=== PATIENT | female | born 1970 | race African-American/Black ===

== ENCOUNTER 2017-05-25 16:45 | Inpatient (IN) | payer BC, OTHER ==
[~2017-05-25] VITALS: Ht 172.7 cm; Wt 103.1 kg
[~2017-05-25 16:45] MED LIST: GUAI100S6 PO; PRED10 PO; Z.0.NO CURRENT MEDS; ZITH250T PO
[2017-05-25 16:47] VITALS: BP 139/79; PULSE 92; RESP 16; TEMP 98.3; O2SAT 99
[2017-05-25] MEDS ORDERED: SODIUM CHLOR 0.9% 1000 ML INJ 1,000 ML IV SCH (17:26)
[2017-05-25] MEDS ORDERED: IBUP200C PO (17:27)
[2017-05-25] MEDS ORDERED: MORPHINE SULFATE 4 MG/ML INJ IV PUSH ONE (17:30)
[2017-05-25] MEDS ORDERED: SODIUM CHLORIDE 0.9% FLUSH 10 ML FLUSH IV FLUSH PRN (17:30)
[2017-05-25] MEDS ORDERED: ONDANSETRON HCL 4 MG/2 ML VIAL IVP ONE (17:30)
--- NOTE | 2017-05-25 17:42 | PD ---
HPI . Abdominal pain Chief Complaint: Abdominal Pain Time Seen by Provider: 17:18 Travel History International Travel<30 days: No Contact w/Intl Traveler<30days: No Traveled to known affect area: No History of Present Illness HPI This patient presents with the chief complaint of right-sided abdominal pain for the last week. She reports poor appetite. She denies nausea, vomiting or diarrhea. She does admit to some dysuria. Her pain is exacerbated by movement. Pain has been unrelieved by Gas-X and Pepto-Bismol. Pain is rated 7- 8/10. PFSH Past Medical History Medical History: Denies Significant Hx ?: Not LMP: 05/25/17 : 2 Para: 2 Past Surgical History Section: Yes (x1) Social History Alcohol Use: Yes (occasional) Tobacco Use: No Substance Use: No Allergies-Medications (Allergen,Severity, Reaction): Coded Allergies: No Known Allergies (Verified , 11/26/11) Reported Meds & Prescriptions Reported Meds & Active Scripts Active Reported Ibuprofen 200 Mg Cap 200 Mg PO Q4H PRN Review of Systems Except as stated in HPI: all other systems reviewed are Neg General / Constitutional: No: Fever, Chills Cardiovascular: No: Chest Pain or Discomfort Respiratory: No: Shortness of Breath Gastrointestinal: Positive: Abdominal Pain, No: Nausea, Vomiting, Diarrhea Genitourinary: Positive: Dysuria, No: Urgency, Frequency, Discharge, Vaginal Bleeding Physical Exam Narrative GENERAL: Patient is awake and alert and does not appear to be in any acute distress. SKIN: Warm and dry. HEAD: Atraumatic. Normocephalic. EYES: Pupils equal and round. ENT: No nasal bleeding or discharge. Mucous membranes pink and moist. NECK: Trachea midline. Neck supple. CARDIOVASCULAR: Regular rate and rhythm. Heart sounds are normal. RESPIRATORY: No accessory muscle use. Lungs are clear with good air movement throughout. GASTROINTESTINAL: Abdomen soft. She is tender on the right side more right lower than right upper quadrant. Negative Hall sign. Nondistended. MUSCULOSKELETAL: No obvious deformities. No edema. NEUROLOGICAL: Awake and alert. No obvious cranial nerve deficits. Motor grossly within normal limits. Normal speech. PSYCHIATRIC: Appropriate mood and affect; insight and judgment normal. Data Data Last Documented VS Vital Signs Date Time Temp Pulse Resp B/P Pulse Ox O2 Delivery O2 Flow Rate FiO2 05/25/17 18:41 16 05/25/17 16:47 98.3 92 139/79 99 Orders Complete Blood Count With Diff (05/25/17 17:26) Comprehensive Metabolic Panel (05/25/17:) Lipase (05/25/17 17:26) Urinalysis - C+S If Indicated (05/25/17 17:26) Ct Abd/Pel W Iv Contrast(Rout) (05/25/17:26) Iv Access Insert/Monitor (05/25/17:26) Morphine Inj (Morphine Inj) (05/25/17 17:30) Ondansetron Inj (Zofran Inj) (05/25/17 17:30) Sodium Chlor 0.9% 1000 Ml Inj (Ns 1000 M (05/25/17 17:26) Sodium Chloride 0.9% Flush (Ns Flush) (05/25/17 17:30) Ed Urine Pregnancytest Poc (05/25/17 17:26) Red Blood Cells (Rbc) (05/25/17 18:42) Blood Product Administration .UPON TRANSFUSION (05/25/17 18:42) Sodium Chlor 0.9% 250 Ml Inj (Ns 250 Ml (05/25/17 18:45) Type And Screen (05/25/17 18:42) Labs Laboratory Tests Test 05/25/17 05/25/17 18:00 18:05 Urine Color YELLOW Urine Turbidity CLEAR Urine pH 5.0 Urine Specific [place] 1.018 Urine Protein NEG mg/dL Urine Glucose (UA) NEG mg/dL Urine Ketones NEG mg/dL Urine Occult Blood NEG Urine Nitrite NEG Urine Bilirubin NEG Urine Urobilinogen LESS THAN 2.0 MG/DL Urine Leukocyte Esterase SMALL Urine WBC 5 /hpf Urine Squamous Epithelial 1 /hpf Cells Urine Mucus FEW /lpf Microscopic Urinalysis Comment CULT NOT INDICATED White Blood Count 11.8 TH/MM3 Red Blood Count 4.30 MIL/MM3 Hemoglobin 6.9 GM/DL Hematocrit 22.4 % Mean Corpuscular Volume 52.1 FL Mean Corpuscular Hemoglobin 16.1 PG Mean Corpuscular Hemoglobin 30.9 % Concent Red Cell Distribution Width 20.4 % Platelet Count 289 TH/MM3 Mean Platelet Volume 9.1 FL Neutrophils (%) (Auto) 77.4 % Lymphocytes (%) (Auto) 9.9 % Monocytes (%) (Auto) 11.6 % Eosinophils (%) (Auto) 0.6 % Basophils (%) (Auto) 0.5 % Neutrophils # (Auto) 9.1 TH/MM3 Lymphocytes # (Auto) 1.2 TH/MM3 Monocytes # (Auto) 1.4 TH/MM3 Eosinophils # (Auto) 0.1 TH/MM3 Basophils # (Auto) 0.1 TH/MM3 CBC Comment DIFF FINAL Differential Comment MDM Medical Decision Making Medical Screen Exam Complete: Yes Emergency Medical Condition: Yes Differential Diagnosis Differential diagnosis of abdominal pain includes but is not limited to gastritis, pancreatitis, hepatitis, gastroenteritis, gallbladder disease, constipation, urinary retention, UTI, peptic ulcer disease, diverticulitis or appendicitis Narrative Course This patient presents complaining with right-sided abdominal pain for a week. She is tender on the right side. She has had pain for weeks would be very unusual to have appendicitis. But, she is tender in the right mid lower abdomen. CT is pending. This patient's workup is still pending. Her care is being signed out to Dr. Edmonds at 7 p.m. The lab is called report that her hemoglobin is about 6. She has been typed and crossed for 2 units. I have subsequently done a rectal exam which is Hemoccult negative. The patient reports no obvious blood loss. HemaPrompt Point of Care Internal Pos. & Neg. Controls: Passed Fecal Specimen Occult Blood: Negative Diagnosis Primary Impression: Abdominal pain Qualified Code: R10.31 - Right lower quadrant abdominal pain Additional Impression: Anemia Qualified Code: D64.9 - Anemia, unspecified type Condition: Stable Grisel Beck MD May 25, 2017 17:42
[2017-05-25 18:34] LABS: BLOOD, URINE NEG (NEG); COMMENT (UR) CULT NOT INDICATED; CULTURE IF INDICATED CULT NOT INDICATED; GLUCOSE,URINE NEG (NEG); KETONE, URINE NEG (NEG); MUCUS URINE FEW /lpf (OCC); NITRITE,URINE NEG (NEG); SQUAMOUS EPITHELIAL CELL URINE 1 /hpf (0-5); URINE COLOR YELLOW (YELLW/STRAW)
[2017-05-25 18:34] LABS: AUTOMATED NEUTROPHIL # 9.1 TH/MM3 (1.8-7.7); BASOPHIL # 0.1 TH/MM3 (0-0.2); BASOPHIL % 0.5 % (0.0-2.0); EOSINOPHIL # 0.1 TH/MM3 (0-0.4); EOSINOPHIL % 0.6 % (0.0-4.0); LYMPH % 9.9 % (9.0-44.0); LYMPHOCYTE # 1.2 TH/MM3 (1.0-4.8); MEAN CELL VOLUME 52.1 FL (80.0-100.0); MEAN CORPUSCULAR HEMOGLOBIN 16.1 PG (27.0-34.0); MEAN CORPUSCULAR HGB CONC 30.9 % (32.0-36.0); MONO % 11.6 % (0.0-8.0); NEUT % 77.4 % (16.0-70.0); PLATELET COUNT 289 TH/MM3 (150-450); RED CELL DISTRIBUTION WIDTH 20.4 % (11.6-17.2); WHITE BLOOD COUNT 11.8 TH/MM3 (4.0-11.0)
[2017-05-25 18:38] LABS: HEMO FLAGS DIFF FINAL
[2017-05-25 18:41] LABS: HEMATOCRIT 22.4 % (35.0-46.0)
[2017-05-25] MEDS ORDERED: SODIUM CHLOR 0.9% 250 ML INJ 250 ML IV ONE (18:45)
[2017-05-25 19:05] LABS: ANION GAP 8 MEQ/L (5-15); AST (GOT) 12 U/L (15-37); BICARBONATE 25.6 MEQ/L (21.0-32.0); BLOOD UREA NITROGEN 9 MG/DL (7-18); CHLORIDE 102 MEQ/L (98-107); GLOMERULAR FILTRATION RATE 94 ML/MIN (>89); POTASSIUM 3.5 MEQ/L (3.5-5.1); SODIUM (NA) 136 MEQ/L (136-145)
[2017-05-25 19:06] LABS: ALT (GPT) 14 U/L (10-53)
[2017-05-25 19:08] LABS: ALKALINE PHOSPHATASE 78 U/L (45-117); TOTAL BILIRUBIN ADULT 0.3 MG/DL (0.2-1.0)
[2017-05-25] MEDS ORDERED: IOHEXOL 350 MG/ML 10 ML VIAL (for RAD DIAG) IV ONE (19:12)
--- NOTE | 2017-05-25 19:13 | RADRPT ---
EXAM DATE/TIME: 05/25/2017 18:53 [facility] COMPARISON: No previous studies available for comparison. INDICATIONS : Right upper abdomen pain for one week. IV CONTRAST: 100 cc Omnipaque 350 (iohexol) IV ORAL CONTRAST: No oral contrast ingested. RADIATION DOSE: 14.46 CTDIvol (mGy) MEDICAL HISTORY : None SURGICAL HISTORY : section. ENCOUNTER: Initial ACUITY: 1 week PAIN SCALE: 4/10 LOCATION: Right upper quadrant TECHNIQUE: Volumetric scanning of the abdomen and pelvis was performed. Using automated exposure control and ad justment of the mA and/or kV according to patient size, radiation dose was kept as low as reasonably achievable to obtain optimal diagnostic quality images. DICOM format image data is available electro nically for review and comparison. FINDINGS: Lung bases are clear. Osseous structures are intact. No pleural or pericardial effusions are seen. Li tracy, gallbladder, spleen, pancreas, adrenal glands, kidneys unremarkable. Tiny fat-containing umbilic al hernia. Urinary bladder unremarkable. There is no evidence of bowel obstruction. The uterus is enl arged with multiple myometrial based masses identified including an inhomogeneous solid fundal mass m easuring 9.4 x 9 cm 3. This is felt to represent uterine fibroids. The left ovary is normal. In the r ight lower quadrant there are inflammatory changes identified surrounding the right ovary which is ab normal in appearance. A hypodense mass with rim enhancement is present the right ovary measuring 3.9 x 3 cm in AP and transverse dimension. There is adjacent inflammatory stranding and trace fluid. The appendix is normal. This is concerning for a tubo-ovarian abscess. A torsed ovary is also differentia l diagnostic consideration. CONCLUSION: Abnormal inflammatory changes in the right lower quadrant at the level of the right adnexa which res fluid and stranding seen. Heterogeneous appearance of the right ovary. The findings are concerning fo r tubo-ovarian abscess ovarian torsion, favor the former. Appendix is normal. Fibroid uterus is present. Virgil Horne MD on May 25, 2017 at 19:07 Board Certified Radiologist. This report was verified electronically.
[2017-05-25 19:20] VITALS: BP 125/65; PULSE 71; RESP 18; O2SAT 97
--- NOTE | 2017-05-25 19:50 | PD ---
Data Data Last Documented VS Vital Signs Date Time Temp Pulse Resp B/P Pulse Ox O2 Delivery O2 Flow Rate FiO2 05/25/17 19:20 71 18 125/65 97 05/25/17 16:47 98.3 Orders Complete Blood Count With Diff (05/25/17 17:26) Comprehensive Metabolic Panel (05/25/17 17:26) Lipase (05/25/17 17:26) Urinalysis - C+S If Indicated (05/25/17 17:26) Ct Abd/Pel W Iv Contrast(Rout) (05/25/17 17:26) Iv Access Insert/Monitor (05/25/17 17:26) Morphine Inj (Morphine Inj) (05/25/17 17:30) Ondansetron Inj (Zofran Inj) (05/25/17 17:30) Sodium Chlor 0.9% 1000 Ml Inj (Ns 1000 M (05/25/17 17:26) Sodium Chloride 0.9% Flush (Ns Flush) (05/25/17 17:30) Ed Urine Pregnancytest Poc (05/25/17 17:26) Red Blood Cells (Rbc) (05/25/17 18:42) Blood Product Administration .UPON TRANSFUSION (05/25/17 18:42) Sodium Chlor 0.9% 250 Ml Inj (Ns 250 Ml (05/25/17 18:45) Type And Screen (05/25/17 18:42) Iohexol 350 Inj (Omnipaque 350 Inj) (05/25/17 19:12) Doxycycline Inj (Vibramycin Inj) (05/25/17 20:00) Cefoxitin Inj (Mefoxin Inj) (05/25/17 20:00) Us Pelvis Comp W Dop Transvag (05/25/17 19:50) Admit To Inpatient (05/25/17 ) Vital Signs (Adult) Q4H (05/25/17 23:58) Activity Oob Ad [place] (05/25/17 ) Diet Regular Basic (05/26/17 Breakfast) Sodium Chloride 0.9% Flush (Ns Flush) (05/26/17 00:00) Sodium Chloride 0.9% Flush (Ns Flush) (05/26/17 09:00) Doxycycline (Vibramycin) (05/26/17 00:00) Cefoxitin Inj (Mefoxin Inj) (05/26/17 06:00) Ibuprofen (Motrin) (05/26/17 00:00) Ketorolac Inj (Toradol Inj) (05/26/17 00:00) Acetamin-Hydrocod 325-5 Mg ([place] 5-325 (05/26/17 00:00) Morphine Inj (Morphine Inj) (05/26/17 00:00) Ondansetron Inj (Zofran Inj) (05/26/17 00:00) Complete Blood Count With Diff (05/26/17 06:00) Blood Culture (05/25/17 23:58) Gc And Chlamydia Pcr (05/25/17 23:58) Baldomero Bilateral/Knee High KENIA.QSHIFT (05/25/17 23:58) Inpatient Certification (05/25/17 ) Blood Product Administration .UPON TRANSFUSION (05/26/17 00:02) Sodium Chlor 0.9% 250 Ml Inj (Ns 250 Ml (05/26/17 00:15) Acetaminophen (Tylenol) (05/26/17 00:15) Diphenhydramine (Benadryl) (05/26/17 00:15) Admit Order (Ed Use Only) (05/26/17 00:14) Labs Laboratory Tests Test 05/25/17 05/25/17 05/25/17 05/25/17 18:00 18:05 19:23 21:37 Urine Color YELLOW Urine Turbidity CLEAR Urine pH 5.0 Urine Specific [place] 1.018 Urine Protein NEG mg/dL Urine Glucose (UA) NEG mg/dL Urine Ketones NEG mg/dL Urine Occult Blood NEG Urine Nitrite NEG Urine Bilirubin NEG Urine Urobilinogen LESS THAN 2.0 MG/DL Urine Leukocyte Esterase SMALL Urine WBC 5 /hpf Urine Squamous Epithelial 1 /hpf Cells Urine Mucus FEW /lpf Microscopic Urinalysis Comment CULT NOT INDICATED White Blood Count 11.8 TH/MM3 Red Blood Count 4.30 MIL/MM3 Hemoglobin 6.9 GM/DL Hematocrit 22.4 % Mean Corpuscular Volume 52.1 FL Mean Corpuscular Hemoglobin 16.1 PG Mean Corpuscular Hemoglobin 30.9 % Concent Red Cell Distribution Width 20.4 % Platelet Count 289 TH/MM3 Mean Platelet Volume 9.1 FL Neutrophils (%) (Auto) 77.4 % Lymphocytes (%) (Auto) 9.9 % Monocytes (%) (Auto) 11.6 % Eosinophils (%) (Auto) 0.6 % Basophils (%) (Auto) 0.5 % Neutrophils # (Auto) 9.1 TH/MM3 Lymphocytes # (Auto) 1.2 TH/MM3 Monocytes # (Auto) 1.4 TH/MM3 Eosinophils # (Auto) 0.1 TH/MM3 Basophils # (Auto) 0.1 TH/MM3 CBC Comment DIFF FINAL Differential Comment Sodium Level 136 MEQ/L Potassium Level 3.5 MEQ/L Chloride Level 102 MEQ/L Carbon Dioxide Level 25.6 MEQ/L Anion Gap 8 MEQ/L Blood Urea Nitrogen 9 MG/DL Creatinine 0.80 MG/DL Estimat Glomerular Filtration 94 ML/MIN Rate Random Glucose 89 MG/DL Calcium Level 8.7 MG/DL Total Bilirubin 0.3 MG/DL Aspartate Amino Transf 12 U/L (AST/SGOT) Alanine Aminotransferase 14 U/L (ALT/SGPT) Alkaline Phosphatase 78 U/L Total Protein 7.4 GM/DL Albumin 3.1 GM/DL Lipase 157 U/L Blood Type B POSITIVE B POSITIVE Antibody Screen NEGATIVE Crossmatch Leukocyte-Reduced Red Blood Cells Blood Bank Comment [facility] Medical Record Reviewed: Yes Supervised Visit with SARAI: No Narrative Course CBC & BMP Diagram 05/25/17 18:05 2 units packed cells given. Doxycycline and cefoxitin ordered. Case discussed with Dr. Peter for [employer] who will evaluate at bedside. Pt to be admitted for TOA. Please refer to Dr Stanley's note for additional information. Last 24 hours Impressions Abdomen/Pelvis/Transvag US 05/25/17 1950 Signed Impressions: Service Date/Time: Thursday, May 25, 2017 21:09 - CONCLUSION: 1. There is a complex hypoechoic mass at the right adnexa with trace free fluid. Blood flow is documented. Given the findings with the CT abnormalities, a tubo-ovarian abscess should be considered. 2. Left ovary not visualized. 3. Fibroids. Virgil Horne MD Abdomen/Pelvis CT 05/25/17 1726 Signed Impressions: Service Date/Time: Thursday, May 25, 2017 18:53 - CONCLUSION: Abnormal inflammatory changes in the right lower quadrant at the level of the right adnexa which res fluid and stranding seen. Heterogeneous appearance of the right ovary. The findings are concerning for tubo-ovarian abscess ovarian torsion, favor the former. Appendix is normal. Fibroid uterus is present. Virgil Horne MD Diagnosis Primary Impression: Abdominal pain Qualified Code: R10.31 - Right lower quadrant abdominal pain Additional Impressions: Anemia Qualified Code: D64.9 - Anemia, unspecified type Tubo-ovarian abscess Admitting Information Admitting Physician Requests: Admit Condition: Stable Tal Edmonds MD May 25, 2017 19:50
[2017-05-25] MEDS ORDERED: DOXYCYCLINE INJ 100 MG in SODIUM CHLORIDE 0.9% INJ 100 ML IV ONE (20:00)
[2017-05-25] MEDS ORDERED: ceFOXitin INJ 2 GM in SODIUM CHLORIDE 0.9% INJ 100 ML IV ONE (20:00)
--- NOTE | 2017-05-25 22:39 | RADRPT ---
EXAM DATE/TIME: 05/25/2017 21:09 [facility] COMPARISON: CT ABDOMEN & PELVIS W CONTRAST, May 25, 2017, 18:53. INDICATIONS : Pelvic pain. MEDICAL HISTORY : None. SURGICAL HISTORY : section. ENCOUNTER: Initial ACUITY: 2 days PAIN SCORE: 4/10 LOCATION: Bilateral pelvis MEASUREMENTS: UTERUS: 12.9 x 8.2 x 7.9 cm ENDOMETRIAL STRIPE: 8 mm RIGHT OVARY: 5.2 x 3.9 x 3.5 cm LEFT OVARY: NONVISUALIZED FINDINGS: The uterus is heterogeneous. A 2.5 x 2.5 x 2 cm mass within the body of the uterus as well as a 7.7 x 6.1 x 7.9 cm hypoechoic mass at the fundus characteristic of fibroids. The left ovary is not visuali zed. The right ovary is enlarged measuring 5.2 x 3.9 x 3.5 cm. Blood flow is present on color Dopple r imaging. A 3.4 x 2.9 x 2.2 cm hypoechoic mass internal echoes identified. There is trace fluid in t his region. This corresponds to the heterogeneous right adnexal mass noted on CT. CONCLUSION: 1. There is a complex hypoechoic mass at the right adnexa with trace free fluid. Blood flow is docume nted. Given the findings with the CT abnormalities, a tubo-ovarian abscess should be considered. 2. Left ovary not visualized. 3. Fibroids. Virgil Horne MD on May 25, 2017 at 22:34 Board Certified Radiologist. This report was verified electronically.
--- NOTE | 2017-05-25 23:58 | HHI.HP ---
HPI Chief Complaint Right abdominal pain Date Seen: May 25, 2017 Time Seen: 23:51 Travel History International Travel<30 Days: No Contact w/Intl Traveler<30Days: No Known Affected Area: No History of Present Illness HPI 46-year-old comes into the emergency department complaining of right lower quadrant pain for 1 week. She states that the pain is moderate in degree but has been worsening to the point where she needed to come in for evaluation. 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 She states that she has normal monthly menses lasting 5-7 days, 1 day is her heaviest day bleeding through 8-10 tampons during the day. She has a history of anemia in the past and she has sickle cell trait. Patient denies any pelvic infections in the past , denies chlamydia or gonorrhea and the past. No new sexual partners. Patient denies fever, fatigue, or anorexia at home. Menses began this morning. Para: 2 : 2 Last Menstrual Period: May 25, 2017 History Past Medical History Medical History: Denies Significant Hx Obstetric History Obstetric History Spontaneous vaginal delivery, Past Surgical History Narrative Surgical Family History Family History: Negative Social History Alcohol Use: No Tobacco Use: No Substance Abuse: No Allergies-Medications (Allergen,Severity, Reaction): Coded Allergies: No Known Allergies (Verified , 11/26/11) Home Meds Reported Medications Ibuprofen 200 Mg Onb467 Mg PO Q4H PRN (PAIN SCALE 1 TO 4) Ref 0 05/25/17 Review of Systems Except as stated in HPI: all other systems reviewed are Neg Physical Exam Vital Signs Date Time Temp Pulse Resp B/P Pulse Ox O2 Delivery O2 Flow Rate FiO2 05/25/17 19:20 71 18 125/65 97 05/25/17 18:41 16 05/25/17 16:47 98.3 92 16 139/79 99 Narrative GENERAL: Well-nourished, well-developed patient. SKIN: Warm and dry. HEAD: Normocephalic and atraumatic. EYES: No scleral icterus. No injection or drainage. ENT: No nasal drainage noted. Mucous membranes pink. Airway patent. NECK: Supple, trachea midline. No JVD. CARDIOVASCULAR: Regular rate and rhythm without murmurs, gallops, or rubs. RESPIRATORY: Breath sounds equal bilaterally. No accessory muscle use.. ABDOMEN/GI: Abdomen soft, tender in the right lower quadrant, bowel sounds present, no rebound, no guarding GENITOURINARY: External Genitalia: intact and normal in appearance. Cervix is in the midline there is minimal cervical motion tenderness, no cul-de-sac nodularity. Patient is tender in the right adnexa but I cannot palpate any enlargement. Patient is on her menses I cannot visualize any discharge EXTREMITIES: No cyanosis or edema. BACK: Nontender without obvious deformity. No CVA tenderness. NEUROLOGICAL: Awake and alert. Motor and sensory grossly within normal limits. Five out of 5 muscle strength in all muscle groups. Normal speech. Data Data Orders Complete Blood Count With Diff (05/25/17 17:) Comprehensive Metabolic Panel (05/25/17:) Lipase (05/25/17:) Urinalysis - C+S If Indicated (05/25/17 17:26) Ct Abd/Pel W Iv Contrast(Rout) (05/25/17 17:26) Iv Access Insert/Monitor (05/25/17 17:26) Morphine Inj (Morphine Inj) (05/25/17 17:30) Ondansetron Inj (Zofran Inj) (05/25/17 17:30) Sodium Chlor 0.9% 1000 Ml Inj (Ns 1000 M (05/25/17 17:26) Sodium Chloride 0.9% Flush (Ns Flush) (05/25/17 17:30) Ed Urine Pregnancytest Poc (05/25/17 17:26) Red Blood Cells (Rbc) (05/25/17 18:42) Blood Product Administration .UPON TRANSFUSION (05/25/17 18:42) Sodium Chlor 0.9% 250 Ml Inj (Ns 250 Ml (05/25/17 18:45) Type And Screen (05/25/17 18:42) Iohexol 350 Inj (Omnipaque 350 Inj) (05/25/17 19:12) Doxycycline Inj (Vibramycin Inj) (05/25/17 20:00) Cefoxitin Inj (Mefoxin Inj) (05/25/17 20:00) Us Pelvis Comp W Dop Transvag (05/25/17 19:50) Labs Last 24 hours Impressions Abdomen/Pelvis/Transvag US 05/25/17 1950 Signed Impressions: Service Date/Time: Thursday, May 25, 2017 21:09 - CONCLUSION: 1. There is a complex hypoechoic mass at the right adnexa with trace free fluid. Blood flow is documented. Given the findings with the CT abnormalities, a tubo-ovarian abscess should be considered. 2. Left ovary not visualized. 3. Fibroids. Virgil Horne MD Abdomen/Pelvis CT 05/25/17 1726 Signed Impressions: Service Date/Time: Thursday, May 25, 2017 18:53 - CONCLUSION: Abnormal inflammatory changes in the right lower quadrant at the level of the right adnexa which res fluid and stranding seen. Heterogeneous appearance of the right ovary. The findings are concerning for tubo-ovarian abscess ovarian torsion, favor the former. Appendix is normal. Fibroid uterus is present. Virgil Horne MD Laboratory Tests Test 05/25/17 05/25/17 05/25/17 05/25/17 18:00 18:05 19:23 21:37 Urine Color YELLOW Urine Turbidity CLEAR Urine pH 5.0 Urine Specific [place] 1.018 Urine Protein NEG Urine Glucose (UA) NEG Urine Ketones NEG Urine Occult Blood NEG Urine Nitrite NEG Urine Bilirubin NEG Urine Urobilinogen LESS THAN 2.0 Urine Leukocyte Esterase SMALL Urine WBC 5 Urine Squamous Epithelial 1 Cells Urine Mucus FEW Microscopic Urinalysis Comment CULT NOT INDICATED White Blood Count 11.8 Red Blood Count 4.30 Hemoglobin 6.9 Hematocrit 22.4 Mean Corpuscular Volume 52.1 Mean Corpuscular Hemoglobin 16.1 Mean Corpuscular Hemoglobin 30.9 Concent Red Cell Distribution Width 20.4 Platelet Count 289 Mean Platelet Volume 9.1 Neutrophils (%) (Auto) 77.4 Lymphocytes (%) (Auto) 9.9 Monocytes (%) (Auto) 11.6 Eosinophils (%) (Auto) 0.6 Basophils (%) (Auto) 0.5 Neutrophils # (Auto) 9.1 Lymphocytes # (Auto) 1.2 Monocytes # (Auto) 1.4 Eosinophils # (Auto) 0.1 Basophils # (Auto) 0.1 CBC Comment DIFF FINAL Differential Comment Sodium Level 136 Potassium Level 3.5 Chloride Level 102 Carbon Dioxide Level 25.6 Anion Gap 8 Blood Urea Nitrogen 9 Creatinine 0.80 Estimat Glomerular Filtration 94 Rate Random Glucose 89 Calcium Level 8.7 Total Bilirubin 0.3 Aspartate Amino Transf 12 (AST/SGOT) Alanine Aminotransferase 14 (ALT/SGPT) Alkaline Phosphatase 78 Total Protein 7.4 Albumin 3.1 Lipase 157 Blood Type B POSITIVE B POSITIVE Antibody Screen NEGATIVE Crossmatch Leukocyte-Reduced Red Blood Cells Blood Bank Comment Assessment/Plan Assessment and Plan 46-year-old patient here with right lower quadrant pain, both CT scan and ultrasound indicate a possibility of a tubo-ovarian abscess. Patient is afebrile with a normal white blood cell count which is atypical of a tubo- ovarian abscess but she does have adnexal tenderness. Differential diagnosis includes early right tubo-ovarian abscess, hemorrhagic ovarian cyst, endometrioma. Will admit for pain control and the initiation of IV antibiotics Anemiapatient has normal menses and has a history of anemia in the past. I do not think that menorrhagia alone is the reason for her anemia but obviously she will need transfusion. Beryl Vieyra MD May 25, 2017 23:58
[2017-05-26] VITALS (14 sets, daily range): BP systolic 105–148; BP diastolic 55–80; PULSE 66–75; RESP 16–20; TEMP 96.7–98.8; O2SAT 98–100
[2017-05-26] MEDS ORDERED: MORPHINE SULFATE 4 MG/ML INJ IV PRN
[2017-05-26] MEDS ORDERED: ONDANSETRON HCL 4 MG/2 ML VIAL IV PRN
[2017-05-26] MEDS ORDERED: KETOROLAC TROMETHAMINE 60 MG/2 ML (IM) VIAL IM PRN
[2017-05-26] MEDS ORDERED: ACETAMINOPHEN 325 MG TAB PO PRN (00:15)
[2017-05-26] MEDS ORDERED: diphenhydrAMINE HCL 25 MG CAP PO PRN (00:15)
[2017-05-26] MEDS ORDERED: SODIUM CHLOR 0.9% 250 ML INJ 250 ML IV ONE (00:15)
[2017-05-26] MEDS: DOXYCYCLINE HYCLATE 100 MG CAP PO SCH ×3 (00:51→22:30)
[2017-05-26] MEDS: ACETAMINOPHEN/HYDROcodone 325 MG/5 MG TAB PO PRN ×5 (02:21→20:34)
[2017-05-26] MEDS: ceFOXitin INJ 2,000 GM in SODIUM CHLORIDE 0.9% INJ 100 ML IV SCH ×4 (05:52→22:30)
[2017-05-26] MEDS: SODIUM CHLORIDE 0.9% FLUSH 5 ML FLUSH IV FLUSH SCH ×3 (08:40→20:34)
--- NOTE | 2017-05-26 08:46 | PD.CONS ---
HPI Chief Complaint Right lower quadrant abdominal pain. Unchanged from admission. (admitted 7 hours previously). Travel History International Travel<30 Days: No Contact w/Intl Traveler<30Days: No Known Affected Area: No History of Present Illness HPI 46-year-old comes into the emergency department complaining of right lower quadrant pain for 1 week. She states that the pain is moderate in degree but has been worsening to the point where she needed to come in for evaluation. Patient is not seen a director of workforce development in several years. She states that she has normal monthly menses lasting 5-7 days, 1 day is her heaviest day bleeding through 8-10 tampons during the day. She has a history of anemia in the past and she has sickle cell trait. Patient denies any pelvic infections in the past , denies chlamydia or gonorrhea and the past. No new sexual partners. Patient denies fever, fatigue, or anorexia at home. Menses began this morning. Allergies-Medications (Allergen,Severity, Reaction): Coded Allergies: No Known Allergies (Verified , 11/26/11) Home Meds Reported Medications Ibuprofen 200 Mg [id number] Mg PO Q4H PRN (PAIN SCALE 1 TO 4) Ref 0 05/25/17 Physical Exam Vital Signs Date Time Temp Pulse Resp B/P Pulse Ox O2 Delivery O2 Flow Rate FiO2 05/26/17 07:35 98.5 70 18 105/60 99 05/26/17 06:45 98.1 75 16 112/68 98 05/26/17 04:10 98.8 70 16 109/58 98 05/26/17 03:55 98.8 73 16 111/55 100 05/26/17 03:35 98.8 73 16 111/55 100 05/26/17 01:55 98.1 75 16 148/80 100 05/26/17 01:22 67 18 120/58 99 05/26/17 01:03 70 18 127/66 100 Room Air 05/26/17 00:45 66 18 126/67 100 Room Air 05/26/17 00:36 67 18 126/67 100 Room Air 05/26/17 00:29 98.7 71 18 131/71 98 Room Air 05/25/17 19:20 71 18 125/65 97 05/25/17 18:41 16 05/25/17 16:47 98.3 92 16 139/79 99 Narrative ENT: No nasal drainage noted. Mucous membranes pink. Airway patent. NECK: Supple, trachea midline. No JVD. ABDOMEN/GI: Abdomen soft, tender in RLQ, bowel sounds present, no rebound, no guarding -] EXTREMITIES: No cyanosis or edema. BACK: Nontender without obvious deformity. No CVA tenderness. NEUROLOGICAL: Awake and alert. Motor and sensory grossly within normal limits. Five out of 5 muscle strength in all muscle groups. Normal speech. Data Data Orders Complete Blood Count With Diff (05/25/17 17:26) Comprehensive Metabolic Panel (05/25/17 17:26) Lipase (05/25/17 17:26) Urinalysis - C+S If Indicated (05/25/17 17:) Ct Abd/Pel W Iv Contrast(Rout) (05/25/17 17:26) Iv Access Insert/Monitor (05/25/17 17:26) Morphine Inj (Morphine Inj) (05/25/17 17:30) Ondansetron Inj (Zofran Inj) (05/25/17 17:30) Sodium Chlor 0.9% 1000 Ml Inj (Ns 1000 M (05/25/17 17:26) Sodium Chloride 0.9% Flush (Ns Flush) (05/25/17 17:30) Ed Urine Pregnancytest Poc (05/25/17 17:26) Red Blood Cells (Rbc) (05/25/17 18:42) Blood Product Administration .UPON TRANSFUSION (05/25/17 18:42) Sodium Chlor 0.9% 250 Ml Inj (Ns 250 Ml (05/25/17 18:45) Type And Screen (05/25/17 18:42) Iohexol 350 Inj (Omnipaque 350 Inj) (05/25/17 19:12) Doxycycline Inj (Vibramycin Inj) (05/25/17 20:00) Cefoxitin Inj (Mefoxin Inj) (05/25/17 20:00) Us Pelvis Comp W Dop Transvag (05/25/17 19:50) Admit To Inpatient (05/25/17 ) Vital Signs (Adult) Q4H (05/25/17 23:58) Activity Oob Ad [place] (05/25/17 ) Diet Regular Basic (05/26/17 Breakfast) Sodium Chloride 0.9% Flush (Ns Flush) (05/26/17 00:00) Sodium Chloride 0.9% Flush (Ns Flush) (05/26/17 09:00) Doxycycline (Vibramycin) (05/26/17 00:00) Cefoxitin Inj (Mefoxin Inj) (05/26/17 06:00) Ibuprofen (Motrin) (05/26/17 00:00) Ketorolac Inj (Toradol Inj) (05/26/17 00:00) Acetamin-Hydrocod 325-5 Mg ([place] 5-325 (05/26/17 00:00) Morphine Inj (Morphine Inj) (05/26/17 00:00) Ondansetron Inj (Zofran Inj) (05/26/17 00:00) Complete Blood Count With Diff (05/26/17 06:00) Blood Culture (05/25/17 23:58) Gc And Chlamydia Pcr (05/25/17 23:58) Baldomero Bilateral/Knee High KENIA.QSHIFT (05/25/17 23:58) Inpatient Certification (05/25/17 ) Blood Product Administration .UPON TRANSFUSION (05/26/17 00:02) Sodium Chlor 0.9% 250 Ml Inj (Ns 250 Ml (05/26/17 00:15) Acetaminophen (Tylenol) (05/26/17 00:15) Diphenhydramine (Benadryl) (05/26/17 00:15) Admit Order (Ed Use Only) (05/26/17 00:14) Tranexamic Acid (Lysteda) (05/26/17 08:45) Labs Vital Signs Date Time Temp Pulse Resp B/P Pulse Ox O2 Delivery O2 Flow Rate FiO2 05/26/17 07:35 98.5 70 18 105/60 99 05/26/17 06:45 98.1 75 16 112/68 98 05/26/17 04:10 98.8 70 16 109/58 98 05/26/17 03:55 98.8 73 16 111/55 100 05/26/17 03:35 98.8 73 16 111/55 100 05/26/17 01:55 98.1 75 16 148/80 100 05/26/17 01:22 67 18 120/58 99 05/26/17 01:03 70 18 127/66 100 Room Air 05/26/17 00:45 66 18 126/67 100 Room Air 05/26/17 00:36 67 18 126/67 100 Room Air 05/26/17 00:29 98.7 71 18 131/71 98 Room Air 05/25/17 19:20 71 18 125/65 97 05/25/17 18:41 16 05/25/17 16:47 98.3 92 16 139/79 99 Laboratory Tests Test 05/25/17 05/25/17 05/25/17 05/25/17 18:00 18:05 19:23 21:37 Urine Color YELLOW Urine Turbidity CLEAR Urine pH 5.0 Urine Specific [place] 1.018 Urine Protein NEG Urine Glucose (UA) NEG Urine Ketones NEG Urine Occult Blood NEG Urine Nitrite NEG Urine Bilirubin NEG Urine Urobilinogen LESS THAN 2.0 Urine Leukocyte Esterase SMALL Urine WBC 5 Urine Squamous Epithelial 1 Cells Urine Mucus FEW Microscopic Urinalysis Comment CULT NOT INDICATED White Blood Count 11.8 Red Blood Count 4.30 Hemoglobin 6.9 Hematocrit 22.4 Mean Corpuscular Volume 52.1 Mean Corpuscular Hemoglobin 16.1 Mean Corpuscular Hemoglobin 30.9 Concent Red Cell Distribution Width 20.4 Platelet Count 289 Mean Platelet Volume 9.1 Neutrophils (%) (Auto) 77.4 Lymphocytes (%) (Auto) 9.9 Monocytes (%) (Auto) 11.6 Eosinophils (%) (Auto) 0.6 Basophils (%) (Auto) 0.5 Neutrophils # (Auto) 9.1 Lymphocytes # (Auto) 1.2 Monocytes # (Auto) 1.4 Eosinophils # (Auto) 0.1 Basophils # (Auto) 0.1 CBC Comment DIFF FINAL Differential Comment Sodium Level 136 Potassium Level 3.5 Chloride Level 102 Carbon Dioxide Level 25.6 Anion Gap 8 Blood Urea Nitrogen 9 Creatinine 0.80 Estimat Glomerular Filtration 94 Rate Random Glucose 89 Calcium Level 8.7 Total Bilirubin 0.3 Aspartate Amino Transf 12 (AST/SGOT) Alanine Aminotransferase 14 (ALT/SGPT) Alkaline Phosphatase 78 Total Protein 7.4 Albumin 3.1 Lipase 157 Blood Type B POSITIVE B POSITIVE Antibody Screen NEGATIVE Crossmatch Leukocyte-Reduced Red Blood Cells Blood Bank Comment MDM Plan 46yo admitted with TOA on right based on ultrasound and CT Scan, see results. Differential includes endometrioma and hemorrhagic ovarian cyst. Patient still not febrile. CBC pending for today Anemia - Menses is heavier today that her usual. s/p 2 units of PRBC's. Will start Tranexamic Acid today. Patient will need outpatient evaluation for resolution of right adnexal mass and to address termite inspector solutions for her menses. Although patient does not have menorrhagia, she is subject to chronic anemia that might be amenable to menstrual suppression. Admitting diagnosis: R Ov Mass, Poss TOA CoMorbid Conditions Anemia Morbid Obesity Sickle cell trait Condition: Beryl Colvin MD May 26, 2017 08:46
[2017-05-26 08:51] LABS: CHLAMYDIA PCR NOT DETECTED (NOT DETECT); NEISSERIA PCR NOT DETECTED (NOT DETECT)
[2017-05-26] MEDS: TRANEXAMIC ACID 650 MG TAB PO SCH ×2 (09:00→15:18)
[2017-05-26] MEDS: SODIUM CHLORIDE 0.9% FLUSH 5 ML FLUSH IV FLUSH PRN ×2 (11:09→17:23)
[2017-05-26 18:20] LABS: AUTOMATED NEUTROPHIL # 7.6 TH/MM3 (1.8-7.7); BASOPHIL % 0.1 % (0.0-2.0); EOSINOPHIL # 0.2 TH/MM3 (0-0.4); EOSINOPHIL % 1.8 % (0.0-4.0); HEMATOCRIT 25.7 % (35.0-46.0); LYMPHOCYTE # 1.4 TH/MM3 (1.0-4.8); MEAN CELL VOLUME 57.2 FL (80.0-100.0); MEAN CORPUSCULAR HEMOGLOBIN 18.5 PG (27.0-34.0); MEAN CORPUSCULAR HGB CONC 32.3 % (32.0-36.0); MONO % 12.2 % (0.0-8.0); NEUT % 72.9 % (16.0-70.0); PLATELET COUNT 265 TH/MM3 (150-450); RED BLOOD COUNT 4.49 MIL/MM3 (4.00-5.30); RED CELL DISTRIBUTION WIDTH 26.9 % (11.6-17.2); WHITE BLOOD COUNT 10.5 TH/MM3 (4.0-11.0)
[2017-05-26 18:25] LABS: HEMO FLAGS AUTO DIFF
[2017-05-26 19:20] LABS: ACANTHOCYTES 1+ (NORMAL); BURR CELLS 1+ (NORMAL); OVALOCYTES 2+ (NORMAL)
[2017-05-26 19:21] LABS: PLATELET ESTIMATE SMEAR NORMAL (NORMAL); PLATELET MORPHOLOGY NORMAL (NORMAL); SCAN/DIFF AUTO DIFF CONFIRMED
[2017-05-27 00:09] VITALS: BP 123/68; PULSE 77; RESP 20; TEMP 99.7; O2SAT 98
[2017-05-27] MEDS: TRANEXAMIC ACID 650 MG TAB PO SCH ×3 (01:00→16:20)
[2017-05-27] MEDS: ACETAMINOPHEN/HYDROcodone 325 MG/5 MG TAB PO PRN (03:26)
[2017-05-27 04:14] VITALS: BP 120/70; PULSE 110; RESP 18; TEMP 99.5; O2SAT 98
[2017-05-27] MEDS: ceFOXitin INJ 2,000 GM in SODIUM CHLORIDE 0.9% INJ 100 ML IV SCH ×4 (06:19→23:00)
[2017-05-27 08:00] VITALS: BP 134/73; PULSE 74; RESP 18; TEMP 99.4; O2SAT 99
--- NOTE | 2017-05-27 08:21 | HHI.PR ---
Subjective Remarks Day 2 IV mefox/doxy AFVSS Pt says pain is barely improved still hurting on R side , H/H =- after blood exam -- R side 2 + tender in mid abd not really in pelvis, no rebound US -- large fibroid filling the uterus , vague R adnexal findings Imp- abd pain being treated as PID but not likely , probable menses combined with fibroid probably degenerating Plan - cont IV ATB another 24 hrs and likely D/C then , I emphasized seeing a NETWORK CONTROL TECHNICIAN doc as OP to assess fibroid and treatment options Objective Vital Signs Date Time Temp Pulse Resp B/P Pulse Ox O2 Delivery O2 Flow Rate FiO2 05/27/17 04:14 99.5 110 18 120/70 98 05/27/17 00:09 99.7 77 20 123/68 98 05/26/17 20:29 96.7 68 20 125/77 99 05/26/17 15:32 97.0 68 17 116/68 99 05/26/17 11:31 98.0 70 17 113/60 98 I/O 05/26/17 05/26/17 05/26/17 05/27/17 05/27/17 05/27/17 06:59 14:59 22:59 06:59 14:59 22:59 Intake Total 895 ml 912 ml 500 ml 240 ml Balance 895 ml 912 ml 500 ml 240 ml Intake Oral 240 ml 650 ml 500 ml 240 ml IV Total 262 ml Packed Cells 655 ml # Voids 3 2 1 # Bowel Movements 1 Result Diagram: 05/26/17 1730 05/25/17 1805 Clark Velásquez II, MD May 27, 2017 08:21
[2017-05-27] MEDS: SODIUM CHLORIDE 0.9% FLUSH 5 ML FLUSH IV FLUSH SCH ×2 (09:00→20:08)
[2017-05-27] MEDS: IBUPROFEN 600 MG TAB PO PRN ×3 (09:16→20:14)
[2017-05-27] MEDS: SODIUM CHLORIDE 0.9% FLUSH 5 ML FLUSH IV FLUSH PRN ×2 (11:06→16:22)
[2017-05-27] MEDS: DOXYCYCLINE HYCLATE 100 MG CAP PO SCH ×2 (11:06→23:00)
[2017-05-27 12:00] VITALS: BP 140/69; PULSE 71; RESP 18; TEMP 98.5; O2SAT 98
[2017-05-27 16:00] VITALS: BP 123/70; PULSE 68; RESP 18; TEMP 98.3; O2SAT 100
[2017-05-27 21:05] VITALS: BP 144/66; PULSE 77; RESP 18; TEMP 98.5; O2SAT 100
[2017-05-28] VITALS: BP 126/73; PULSE 68; RESP 17; TEMP 98.2; O2SAT 98
[2017-05-28] MEDS: TRANEXAMIC ACID 650 MG TAB PO SCH ×2 (01:00→08:02)
[2017-05-28] MEDS: IBUPROFEN 600 MG TAB PO PRN ×3 (01:01→11:10)
[2017-05-28] MEDS: ceFOXitin INJ 2,000 GM in SODIUM CHLORIDE 0.9% INJ 100 ML IV SCH ×2 (05:22→11:10)
[2017-05-28 08:00] VITALS: BP 109/71; PULSE 69; RESP 18; TEMP 97.9; O2SAT 98
[2017-05-28] MEDS: SODIUM CHLORIDE 0.9% FLUSH 5 ML FLUSH IV FLUSH SCH (08:03)
--- NOTE | 2017-05-28 10:38 | PD.CONS ---
History & Physical H&P S: Patient with suspected tubo-ovarian abscess on Day 3 IV cefoxitin and oral doxycycline. Patient has been AFVSS overnight. Patient reports continued improvement of her right upper quadrant pain. O: Vital signs stable Gen.: Patient lying in bed in no acute distress Cardiovascular: Regular rate and rhythm Respiratory: Clear to auscultation bilaterally GI: Patient tender to palpation of right upper quadrant, no guarding, no rebound Imaging: US -- large fibroid filling the uterus , vague R adnexal findings A/P: abd pain being treated as PID but not likely; probable menses combined with fibroid probably degenerating 1) PID plan to discharge patient on total of 14 days of antibiotic therapy: Doxycycline 100 mg by mouth twice a day emphasized seeing a SUPERVISOR SPEECH doc as OP to assess fibroid and treatment options. Patient asked about seeing Dr. Vieyra is an outpatient. Consider re-imaging as an outpatient to rule out tubo-ovarian abscess. d/w Dr. Didier Ruiz. Ismael Mendieta MD R1 May 28, 2017 10:37 Ismael Mendieta MD R1 May 28, 2017 10:37
[2017-05-28] MEDS: DOXYCYCLINE HYCLATE 100 MG CAP PO SCH (11:10)
[2017-05-28 11:11] VITALS: BP 149/83; PULSE 79; RESP 19; TEMP 98.2; O2SAT 99
[2017-05-28] MEDS ORDERED: DOXY100C PO (11:56)
[2017-05-28] MEDS ORDERED: HYDR-3516 PO (11:57)
--- NOTE | 2017-05-28 11:58 | HHI.DCPOC ---
Discharge Care Plan Diagnosis: (1) Abdominal pain (2) PID (pelvic inflammatory disease) Report Symptoms to Your Doctor -Temperature above 100.5 degrees -Redness, of incision or excessive or foul smelling drainage -Unusual pain or calf pain -Increased vaginal bleeding -Painful or difficulty urinating -Feelings of extreme sadness or anxiety after 2 weeks Goals to Promote Your Health * To prevent worsening of your condition and complications, please take medications as prescribed. * To maintain your health at the optimal level, please follow-up with a doctor. Directions to Meet Your Goals Take your medications as prescribed Follow your dietary instruction Follow activity as directed Ensure plenty of rest for recovery Drink fluids for hydration Keep your appointments as scheduled Take your immunizations and boosters as scheduled If your symptoms worsen call your PCP, if no PCP go to Urgent Care Center or Emergency Room Smoking is Dangerous to Your Health. Avoid second hand smoke Call the 24-hour crisis hotline for domestic abuse at Ismael Mendieta MD R1 May 28, 2017 11:58
== END 2017-05-28 14:30 | disposition home or self-care (01) | DRG 759 ==
LOC: NEPE 16:45 → NEDA 05-26 00:16 → N06A 05-26 01:43
PROVIDERS: ADMIT Obstetrics & Gynecology Obstetrics; ATTEND Obstetrics & Gynecology Obstetrics
PROC: 30233N1 Transfusion of Nonautologous Red Blood Cells into Peripheral Vein, Percutaneous Approach (ICD-10-PCS; principal; 2017-05-25)
DX: N70.93 Salpingitis and oophoritis, unspecified (principal); E66.01 Morbid (severe) obesity due to excess calories; D64.9 Anemia, unspecified; D25.9 Leiomyoma of uterus, unspecified; Z68.34 Body mass index [BMI] 34.0-34.9, adult; D57.3 Sickle-cell trait
CPT/HCPCS: 36430; 74177; 76830; 76856; 80053; 81001; 83690; 84703; 85025; 86850; 86900; 86901; 86920; 87040; 87491; 87591; 93975; 96374; 96375; J0694; J2270; J2405; J7030; J7050; P9016; Q9967

== ENCOUNTER 2017-07-09 19:10 | Emergency (ER) | payer OTHER ==
[~2017-07-09] VITALS: Ht 172.7 cm; Wt 109.1 kg
[~2017-07-09 19:10] MED LIST changes: +DOXY100C PO; -GUAI100S6 PO; +HYDR-3516 PO; +IBUP200C PO; -PRED10 PO; -Z.0.NO CURRENT MEDS; -ZITH250T PO
[2017-07-09 19:11] VITALS: BP 138/90; PULSE 65; RESP 18; TEMP 97.1; O2SAT 99
[2017-07-09] MEDS ORDERED: KETOROLAC TROMETHAMINE 30 MG/ML (IVP) VIAL IV PUSH ONE (20:00)
[2017-07-09] MEDS ORDERED: HYDROmorphone HCL PF 1 MG/ML VIAL IV PUSH ONE (20:00)
--- NOTE | 2017-07-09 20:01 | PD ---
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 She's been having this pain intermittently for several months. She was hospitalized in May and diagnosed with a large fibroid. She has a plan for surgery on this later this month. She's been taking Lortab for the pain but today her pain is gotten a lot worse. She says over the past 6 days her pain is gotten worse ever since she traveled back on a long car ride from another state. She denies any fevers or chills and denies any vaginal discharge or bleeding. PFSH Past Medical History Arthritis: No Asthma: No Autoimmune Disease: No Anxiety: No Depression: No Heart Rhythm Problems: No Cancer: No Cardiovascular Problems: No High Cholesterol: No Chemotherapy: No Chest Pain: No Congestive Heart Failure: No COPD: No Cerebrovascular Accident: No Diabetes: No Endocrine: No Gastrointestinal Disorders: Yes GERD: Yes Genitourinary: No Headaches: Yes Hiatal Hernia: No Heparin Induced Thrombocytopen: No Immune Disorder: No Kidney Stones: No Musculoskeletal: No Neurologic: Yes Psychiatric: No Reproductive: Yes Respiratory: No Migraines: Yes Radiation Therapy: No Renal Failure: No Seizures: No Sickle Cell Disease: No Sleep Apnea: No Thyroid Disease: No Ulcer: No Tetanus Vaccination: > 5 Years Influenza Vaccination: No ?: Not LMP: 06/30/17 : 2 Para: 2 Past Surgical History Abdominal Surgery: No AICD: No Arteriovenous Shunt: No Cardiac Surgery: No Section: Yes (x1) Ear Surgery: No Endocrine Surgery: No Eye Surgery: No Genitourinary Surgery: No Gynecologic Surgery: Yes () Insulin Pump: No Joint Replacement: No Oral Surgery: No Pacemaker: No Thoracic Surgery: No Other Surgery: Yes Social History Alcohol Use: Yes (occ) Tobacco Use: No Substance Use: No Allergies-Medications (Allergen,Severity, Reaction): Coded Allergies: *MDRO Multi-Drug Resistant Organism (Verified Adverse Reaction, Unknown, MRSA, 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 HEAD: Atraumatic. Normocephalic. EYES: Pupils equal and round. No injection or drainage. ENT: Moist mucous membranes NECK: Trachea midline. CARDIOVASCULAR: Regular rate and rhythm. No murmur appreciated. RESPIRATORY: Clear to auscultation. Breath sounds equal bilaterally. GASTROINTESTINAL: Abdomen soft, moderately tender to palpation in the suprapubic region with a palpable mass in the uterine area. TUGBOAT MATE: No vaginal discharge, mass appreciated in the uterus. No adnexal tenderness. MUSCULOSKELETAL: No obvious deformities. NEUROLOGICAL: Awake and alert. No obvious cranial nerve deficits. Moving all extremities. PSYCHIATRIC: Appropriate mood and affect; insight and judgment normal. Data Data Last Documented VS Vital Signs Date Time Temp Pulse Resp B/P (MAP) Pulse Ox O2 Delivery O2 Flow Rate FiO2 07/09/17 19:11 97.1 65 18 138/90 (106) 99 Orders Orders Complete Blood Count With Diff (07/09/17 19:46) Comprehensive Metabolic Panel (07/09/17 19:46) ^ Insert Iv (07/09/17 19:46) Ed Urine Pregnancytest Poc (07/09/17 19:46) Urinalysis - C+S If Indicated (07/09/17 19:46) Ketorolac Inj (Toradol Inj) (07/09/17 20:00) Hydromorphone Pf Inj (Dilaudid Pf Inj) (07/09/17 20:00) Us Pelvis Comp W Doppler (07/09/17 ) Labs Laboratory Tests Test 07/09/17 19:50 07/09/17 20:10 White Blood Count 8.7 TH/MM3 Red Blood Count 4.79 MIL/MM3 Hemoglobin 8.8 GM/DL Hematocrit 28.4 % Mean Corpuscular Volume 59.2 FL Mean Corpuscular Hemoglobin 18.4 PG Mean Corpuscular Hemoglobin Concent 31.0 % Red Cell Distribution Width 28.7 % Platelet Count 300 TH/MM3 Mean Platelet Volume 8.4 FL Neutrophils (%) (Auto) 78.6 % Lymphocytes (%) (Auto) 11.9 % Monocytes (%) (Auto) 8.1 % Eosinophils (%) (Auto) 0.9 % Basophils (%) (Auto) 0.5 % Neutrophils # (Auto) 6.8 TH/MM3 Lymphocytes # (Auto) 1.0 TH/MM3 Monocytes # (Auto) 0.7 TH/MM3 Eosinophils # (Auto) 0.1 TH/MM3 Basophils # (Auto) 0.0 TH/MM3 CBC Comment AUTO DIFF Differential Comment AUTO DIFF CONFIRMED Platelet Estimate NORMAL Platelet Morphology Comment NORMAL Ovalocytes 1+ Keratocytes 1+ Blood Urea Nitrogen 11 MG/DL Creatinine 0.73 MG/DL Random Glucose 92 MG/DL Total Protein 7.4 GM/DL Albumin 3.2 GM/DL Calcium Level 8.5 MG/DL Alkaline Phosphatase 80 U/L Aspartate Amino Transf (AST/SGOT) 22 U/L Alanine Aminotransferase (ALT/SGPT) 22 U/L Total Bilirubin 0.3 MG/DL Sodium Level 140 MEQ/L Potassium Level 3.9 MEQ/L Chloride Level 105 MEQ/L Carbon Dioxide Level 26.7 MEQ/L Anion Gap 8 MEQ/L Estimat Glomerular Filtration Rate 105 ML/MIN Urine Color LIGHT-YELLOW Urine Turbidity CLEAR Urine pH 6.0 Urine Specific [place] 1.019 Urine Protein NEG mg/dL Urine Glucose (UA) NEG mg/dL Urine Ketones NEG mg/dL Urine Occult Blood NEG Urine Nitrite NEG Urine Bilirubin NEG Urine Urobilinogen LESS THAN 2.0 MG/DL Urine Leukocyte Esterase NEG Urine WBC 2 /hpf Microscopic Urinalysis Comment CULT NOT INDICATED MDM Medical Decision Making Medical Screen Exam Complete: Yes Emergency Medical Condition: Yes Interpretation(s) Last 24 hours Impressions Pelvis Ultrasound 07/09/17 0000 Signed Impressions: Service Date/Time: Sunday, July 09, 2017 20:36 - CONCLUSION: 1. Enlarged uterus with a large leiomyoma in the fundal region. 2. Small simple cyst in right ovary. Ismael Duncan MD Differential Diagnosis Fibroid, ovarian torsion, pelvic inflammatory disease, tubo-ovarian abscess Narrative Course This is a 46-year-old female who presents to the emergency department with pelvic pain in the setting of a known large uterine fibroid. She is well- appearing on exam but uncomfortable. Labs are obtained which were reassuring. Pelvic ultrasound demonstrates fibroid but no other acute process. Pelvic exam is benign. She was given pain control and feels much better. She'll be discharged to follow-up with her primary WEATHER ANCHOR. Diagnosis Primary Impression: Fibroid, uterine Qualified Codes: D25.9 - Leiomyoma of uterus, unspecified Patient Instructions: General Instructions Additional Instructions: If you develop severe or worsening abdominal pain, fever>100.4, persistent vomiting or inability to eat or drink return to the emergency department immediately. Follow up with your primary care physician in 1-2 days if you are not improved. Med/Other Pt SpecificInfo: Prescription(s) given Scripts Naproxen (Naproxen) 500 Mg Tab 500 MG PO BID Y for PAIN SCALE 4 TO 10, #20 TAB 0 Refills Prov: Nicole Macario MD 07/09/17 Hydrocodone-Acetaminophen (Lortab) 10-325 Mg Tab 1 TAB PO Q6H Y for PAIN, #15 TAB 0 Refills Prov: Nicole Macario MD 07/09/17 Disposition: 01 DISCHARGE HOME Condition: Stable Nicole Macario MD Jul 09, 2017 20:01
[2017-07-09 20:34] LABS: AUTOMATED NEUTROPHIL # 6.8 TH/MM3 (1.8-7.7); BASOPHIL % 0.5 % (0.0-2.0); EOSINOPHIL # 0.1 TH/MM3 (0-0.4); EOSINOPHIL % 0.9 % (0.0-4.0); HEMATOCRIT 28.4 % (35.0-46.0); LYMPH % 11.9 % (9.0-44.0); MEAN CELL VOLUME 59.2 FL (80.0-100.0); MEAN CORPUSCULAR HEMOGLOBIN 18.4 PG (27.0-34.0); MONO % 8.1 % (0.0-8.0); NEUT % 78.6 % (16.0-70.0); PLATELET COUNT 300 TH/MM3 (150-450); RED BLOOD COUNT 4.79 MIL/MM3 (4.00-5.30); RED CELL DISTRIBUTION WIDTH 28.7 % (11.6-17.2); WHITE BLOOD COUNT 8.7 TH/MM3 (4.0-11.0)
[2017-07-09 20:34] LABS: BLOOD, URINE NEG (NEG); GLUCOSE,URINE NEG (NEG); KETONE, URINE NEG (NEG); NITRITE,URINE NEG (NEG); URINE COLOR LIGHT-YELLOW (YELLW/STRAW)
[2017-07-09 20:37] LABS: HEMO FLAGS AUTO DIFF
[2017-07-09 20:45] LABS: COMMENT (UR) CULT NOT INDICATED; CULTURE IF INDICATED CULT NOT INDICATED
[2017-07-09 20:50] LABS: ANION GAP 8 MEQ/L (5-15); AST (GOT) 22 U/L (15-37); BICARBONATE 26.7 MEQ/L (21.0-32.0); BLOOD UREA NITROGEN 11 MG/DL (7-18); CHLORIDE 105 MEQ/L (98-107); GLOMERULAR FILTRATION RATE 105 ML/MIN (>89); POTASSIUM 3.9 MEQ/L (3.5-5.1); SODIUM (NA) 140 MEQ/L (136-145)
[2017-07-09 20:51] LABS: ALT (GPT) 22 U/L (10-53)
[2017-07-09 20:53] LABS: ALKALINE PHOSPHATASE 80 U/L (45-117); TOTAL BILIRUBIN ADULT 0.3 MG/DL (0.2-1.0)
--- NOTE | 2017-07-09 21:13 | RADRPT ---
EXAM DATE/TIME: 07/09/2017 20:36 [facility] COMPARISON: US PELVIS,COMP,W DOPLR, TRANS VAG, May 25, 2017, 21:09. INDICATIONS : Right pelvic pain for 1 day. MEDICAL HISTORY : History of enlarged leiomyomatous uterus. Gastroesophageal reflux disease. Migraine. SURGICAL HISTORY : section. ENCOUNTER: Subsequent ACUITY: 1 day PAIN SCORE: 7/10 LOCATION: Bilateral pelvis MEASUREMENTS: UTERUS: 12.3 x 7.4 x 10.3 cm ENDOMETRIAL STRIPE: 7 mm RIGHT OVARY: 4.3 x 2.1 x 3.4 cm LEFT OVARY: 4.5 x 2.3 x 2.7 cm FINDINGS: UTERUS: The uterus is enlarged with a large solid hypoechoic mass in the fundal region measuring 10.2 x 9 x 8 .4 cm with posterior shadowing. RIGHT OVARY: Small cystic structure measuring 1.3 x 1.5 cm. LEFT OVARY: Ovary contains no mass or significant cystic lesion. MISCELLANEOUS: No free fluid. CONCLUSION: 1. Enlarged uterus with a large leiomyoma in the fundal region. 2. Small simple cyst in right ovary. Ismael Duncan MD on July 09, 2017 at 21:09 Board Certified Radiologist. This report was verified electronically.
[2017-07-09 21:37] LABS: KERATOCYTES 1+ (NORMAL); OVALOCYTES 1+ (NORMAL); PLATELET ESTIMATE SMEAR NORMAL (NORMAL); PLATELET MORPHOLOGY NORMAL (NORMAL); SCAN/DIFF AUTO DIFF CONFIRMED
[2017-07-09] MEDS ORDERED: NAPR500T PO (22:16)
[2017-07-09] MEDS ORDERED: HYDR-3535 PO (22:16)
[2017-07-09] MEDS ORDERED: ONDANSETRON HCL 4 MG/2 ML VIAL IV ONE (22:30)
[2017-07-09 22:38] VITALS: BP 140/86; PULSE 68; RESP 14; O2SAT 99
== END 2017-07-09 22:55 | disposition home or self-care (01) ==
LOC: NEPD 19:10
DX: D25.9 Leiomyoma of uterus, unspecified (principal)
CPT/HCPCS: 76856; 80053; 81001; 84703; 85025; 93975; 96374; 96375; 99285; J1170; J2405